=== PATIENT | female | born 1955 | race Caucasian/White ===

== ENCOUNTER 2017-02-25 15:08 | Emergency (ER) | payer MEDICARE ==
[~2017-02-25 15:08] MED LIST: *UNABLE1; ACIDOPHILU2 PO; ALTA2.5 PO; AMITIZA24 PO; ASMANEX INH; ATROVENTUD INH; ATV.5 PO; BACDS PO; BC POWDER; BIST PO; BROVANA15 MCG INH; BUSPAR10 PO; BUSPAR15 M1 PO; CALCIUM PO; CENTRUM PO; CHOLECALCIFEROL PO; CITRACAL PO; CORDARONE PO; CYMBALTA30 PO; CYMBALTA60 PEG; CYMBALTA60 PO; DEMA20 PO; DEXTROSE; DIGITEK0.25 MG PO; DITRO5 PO; DSS PO; ELIQUIS 5 MG TAB5 MG PO; FEOSOL200 MG PO; FESO4 PO; FLEXERIL5 MG PEG; GLUCOPHAGE1000 MG PO; HUMALOG SC; JUVEN POWDER PO; KLOR-CON M2020 MEQ PO; L20 PO; L40 PO; LAMICTAL25 PO; LANTUS SC; LEVEMFLXPN SC; LEVEMIR SC; LEVOTHYROXIN100 MCG PEG; LEVOTHYROXIN100 MCG PO; LEVOTHYROXIN112 MCG PO; LEVOTHYROXIN125 MCG PO; LEVOTHYROXIN75 MCG PO; LOP25 PEG; LOP25 PO; LOP50 PO; LOVENOX40 SC; LYRICA100 MG PEG; LYRICA100 MG PO; METHOC500B PO; MIRALAXPKT PO; MULTIPLE VIT PO; NAP500 PO; NEUR100 PO; NEUR300 PO; NEUR400 PO; NEXIUM40 MG PEG; NOVOLOG SC; P5 PEG; PCET PEG; PCET PO; PRADAXA150 MG PO; PRAVAC PO; PRAVACHOL40 MG PO; PRILO PO; PRILOSEC40 MG PO; PROTONIX PO; PROZAC PO; PULRESP.5 INH; QVAR80 MCG INH; REG PO; REG5 PEG; REG5 PO; REM15 PO; SANTYL250 MG/GM TOP; SEROQUEL XR150 MG PO; SEROQUEL1C PO; SEROQUEL25 PEG; SEROQUEL25 PO; SEROQUEL50 MG PO; SPIRIVA INH; SYMBICORT 160/41 INH INH; SYN.025B PO; SYN.15 PO; TRAZ100 PO; TRAZ50 PO; TYLENOL ARTH650 MG PEG; VICTOZA18 MG/3 ML SC; VITC500 PO; XARELTO10 MG PO; Xarelto; Z300 PO; ZYRTEC ALLGY10 MG PO; [UNRECOGNIZED DRUG - OTHER] PEG
[2017-02-25 15:58] LABS: BASOPHILS 1.5 %; BASOPHILS ABSOLUTE 0.08 10/3/uL (0.0-0.16); EOSINOPHILS 3.1 %; EOSINOPHILS ABSOLUTE 0.16 10/3/uL (0.0-0.53); IMMATURE GRANULOCYTES 0.6 %; IMMATURE GRANULOCYTES ABSOLUTE 0.03 10/3/uL (0.0-0.11); LYMPHOCYTES 21.1 %; MEAN CORPUS HGB CONC 32.2 g/dL (32.0-36.0); MEAN CORPUSCULAR HEMOGLOB 30.9 pg (26.0-34.0); MEAN PLATELET VOLUME 9.4 fL (9.2-13.0); MONOCYTES 8.3 %; MONOCYTES ABSOLUTE 0.43 10/3/uL (0.21-1.20); NEUTROPHILS 65.4 %; NEUTROPHILS ABSOLUTE 3.41 10/3/uL (2.02-8.40); PLATELET COUNT 140 10/3/uL (150-400); RBC DISTRIBUTION WIDTH 14.6 % (12.0-16.0); WHITE BLOOD CELLS 5.2 10/3/uL (4.5-10.5)
[2017-02-25 16:00] LABS: HEMATOCRIT 35.7 % (36.0-48.0); HEMOGLOBIN 11.5 g/dL (12.0-16.0); RED CELL COUNT 3.72 10/6/uL (4.0-5.6)
[2017-02-25 16:01] LABS: MANUAL DIFF NO %
[2017-02-25 16:06] LABS: INTERNATIONAL NORMAL RATI 1.2 UNITS (-); PARTIAL THROMBO TIME 31.3 SEC (22.5-37.2); PROTIME (NOT ORD) 14.7 SEC (12.0-14.5)
[2017-02-25 16:12] LABS: CALCIUM, SERUM 9.1 MG/DL (8.5-10.4); CHEST PAIN PROFILE TAT 0 Hrs 20 Mins; CHLORIDE, SERUM 99 MMOL/L (96-112); CREATININE 1.54 MG/DL (0.55-1.02); GFR AFRICAN AMERICAN 41 ML/MIN (>=60); GFR NON AFRICAN AMERICAN 36 ML/MIN (>=60); POTASSIUM, SERUM 4.1 MMOL/L (3.5-5.3); SODIUM, SERUM 140 MMOL/L (135-148); TROPONIN I <0.02 NG/ML (<0.05)
[2017-02-25 16:14] LABS: BUN (BLOOD UREA NITROGEN) 29 MG/DL (6-23); CO2 (CARBON DIOXIDE) 38 MMOL/L (24-34); GLUCOSE, SERUM 136 MG/DL (60-99)
== END 2017-02-25 18:04 | disposition home or self-care (01) ==
LOC: ER 15:08
PROVIDERS: Emergency Medicine
DX: J02.9 Acute pharyngitis, unspecified (principal); I13.0 Hypertensive heart and chronic kidney disease with heart failure and stage 1 through stage 4 chronic kidney disease, or unspecified chronic kidney disease; E11.22 Type 2 diabetes mellitus with diabetic chronic kidney disease; N18.9 Chronic kidney disease, unspecified; I50.9 Heart failure, unspecified; J44.9 Chronic obstructive pulmonary disease, unspecified; I48.91 Unspecified atrial fibrillation; K21.9 Gastro-esophageal reflux disease without esophagitis; D64.9 Anemia, unspecified; F32.9 Major depressive disorder, single episode, unspecified; F41.9 Anxiety disorder, unspecified; Z87.442 Personal history of urinary calculi; Z95.5 Presence of coronary angioplasty implant and graft; Z90.710 Acquired absence of both cervix and uterus; Z85.850 Personal history of malignant neoplasm of thyroid; Z88.1 Allergy status to other antibiotic agents; Z88.0 Allergy status to penicillin; Z88.6 Allergy status to analgesic agent; Z88.5 Allergy status to narcotic agent; Z88.8 Allergy status to other drugs, medicaments and biological substances; Z91.09 Other allergy status, other than to drugs and biological substances; Z79.4 Long term (current) use of insulin; Z79.899 Other long term (current) drug therapy
CPT/HCPCS: 71020; 80048; 83735; 83880; 84484; 85025; 85610; 85730; 93005; 99284

== ENCOUNTER 2017-03-10 14:01 | Emergency (ER) | payer MEDICARE ==
[2017-03-10 15:37] LABS: BASOPHILS 0.9 %; BASOPHILS ABSOLUTE 0.06 10/3/uL (0.0-0.16); EOSINOPHILS 3.4 %; EOSINOPHILS ABSOLUTE 0.22 10/3/uL (0.0-0.53); HEMATOCRIT 33.7 % (36.0-48.0); HEMOGLOBIN 10.7 g/dL (12.0-16.0); IMMATURE GRANULOCYTES 0.5 %; IMMATURE GRANULOCYTES ABSOLUTE 0.03 10/3/uL (0.0-0.11); LYMPHOCYTES 20.1 %; LYMPHOCYTES ABSOLUTE 1.31 10/3/uL (0.67-4.30); MEAN CORPUS HGB CONC 31.8 g/dL (32.0-36.0); MEAN CORPUSCULAR HEMOGLOB 30.6 pg (26.0-34.0); MEAN CORPUSCULAR VOLUME 96.3 fL (80-100); MEAN PLATELET VOLUME 9.9 fL (9.2-13.0); MONOCYTES 8.6 %; MONOCYTES ABSOLUTE 0.56 10/3/uL (0.21-1.20); NEUTROPHILS 66.5 %; NEUTROPHILS ABSOLUTE 4.34 10/3/uL (2.02-8.40); PLATELET COUNT 157 10/3/uL (150-400); RBC DISTRIBUTION WIDTH 14.6 % (12.0-16.0); WHITE BLOOD CELLS 6.5 10/3/uL (4.5-10.5)
[2017-03-10 15:39] LABS: MANUAL DIFF NO %
[2017-03-10 15:45] LABS: INTERNATIONAL NORMAL RATI 1.2 UNITS (-); PROTIME (NOT ORD) 15.4 SEC (12.0-14.5)
[2017-03-10 15:56] LABS: BUN (BLOOD UREA NITROGEN) 20 MG/DL (6-23); CALCIUM, SERUM 7.9 MG/DL (8.5-10.4); CHEST PAIN PROFILE TAT 0 Hrs 25 Mins; CHLORIDE, SERUM 104 MMOL/L (96-112); CO2 (CARBON DIOXIDE) 34 MMOL/L (24-34); CREATININE 1.28 MG/DL (0.55-1.02); GFR AFRICAN AMERICAN 52 ML/MIN (>=60); GFR NON AFRICAN AMERICAN 44 ML/MIN (>=60); GLUCOSE, SERUM 73 MG/DL (60-99); POTASSIUM, SERUM 3.7 MMOL/L (3.5-5.3); SODIUM, SERUM 142 MMOL/L (135-148); TROPONIN I <0.02 NG/ML (<0.05)
== END 2017-03-10 19:04 | disposition home or self-care (01) ==
LOC: ER 14:01
PROVIDERS: Physician Assistant
DX: J30.9 Allergic rhinitis, unspecified (principal); J44.9 Chronic obstructive pulmonary disease, unspecified; I11.0 Hypertensive heart disease with heart failure; I50.9 Heart failure, unspecified; Z88.0 Allergy status to penicillin; Z88.1 Allergy status to other antibiotic agents; Z88.5 Allergy status to narcotic agent; Z88.6 Allergy status to analgesic agent; Z88.8 Allergy status to other drugs, medicaments and biological substances; Z91.048 Other nonmedicinal substance allergy status; Z79.4 Long term (current) use of insulin; Z79.891 Long term (current) use of opiate analgesic; Z79.1 Long term (current) use of non-steroidal anti-inflammatories (NSAID); Z79.899 Other long term (current) drug therapy
CPT/HCPCS: 71010; 80048; 83690; 83735; 84484; 85025; 85610; 85730; 93005; 99285